=== PATIENT | male | born 2000 | race Hispanic/Latino ===

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

== ENCOUNTER 2022-08-08 22:43 | Emergency (ER) | payer BC, OTHER ==
[2022-08-08] MEDS ORDERED: Ibuprofen 200 MG TAB ONE (23:48)
== END 2022-08-09 00:54 | disposition home or self-care (01) ==
LOC: ERS 22:43
DX: N50.812 Left testicular pain (principal)
CPT/HCPCS: 76870; 93976